=== PATIENT | female | born 1990 | race Caucasian/White ===

== ENCOUNTER 2018-03-10 14:57 | Inpatient (IN) ==
[2018-03-10] MEDS ORDERED: ONDANSETRON 4 MG/2 ML VIAL IV PRN (15:31)
[2018-03-10] MEDS ORDERED: BUTORPHANOL 2 MG/ML VIAL IV PRN (15:31)
[2018-03-10] MEDS ORDERED: DINOPROSTONE VAG GEL 10 MG SYRINGE VAG ONE (15:32)
[2018-03-10 15:51] LABS: Basophils % 0.3 % (0.0-0.8); Eosinophils % 0.3 % (0.00-10.9); Hematocrit 33.9 VOL% (35.7-47.0); Immature Granulocytes % 0.6 %; Immature Granulocytes Absolute 0.08 #; Lymphocytes # 1.1 10*3/uL (1.4-4.0); Lymphocytes % 7.6 % (21.3-54.2); Mean Corpuscular HGB Conc 35.4 GM/DL (32-36); Mean Corpuscular Hemoglobin 32 PG (27-34); Mean Corpuscular Volume 89.4 FL (87-102); Mean Platelet Volume 10.3 FL (9.6-12.0); Monocytes # 0.8 10*3/uL (0.11-0.8); Monocytes % 5.9 % (1.7-12.7); Neutrophils # 11.9 10*3/uL (1.4-7.4); Neutrophils % 85.3 % (38.7-73.9); Platelet Count 226 T/CUMM (130-400); Red Blood Count 3.79 MC/CUMM (3.8-5.5)
[2018-03-10] MEDS: LACTATED RINGERS 1,000 ML IV SCH ×2 (15:54→23:30)
[2018-03-10 16:17] LABS: Albumin 2.9 G/DL (3.4-5.0); Bilirubin,Total 0.4 MG/DL (0.2-1.0); Calcium 8.7 MG/DL (8.5-10.1); Total Protein 6.7 G/DL (6.4-8.3)
[2018-03-10 16:18] LABS: Osmolality,Calculated 275.5 MOS/KG (273-304); Potassium 3.4 MMOL/L (3.5-5.1)
[2018-03-10] MEDS ORDERED: CITRIC ACID/SODIUM CITRATE 30 ML UDCUP PO ONE (23:23)
[2018-03-10] MEDS ORDERED: FAMOTIDINE 20 MG/2 ML VIAL IV ONE (23:30)
[2018-03-10] MEDS ORDERED: ePHEDrine 50 MG/ML AMP ONE (23:33)
[2018-03-10] MEDS ORDERED: OXYTOCIN/LR 20 UNIT/1,000 ML BAG IV ONE (23:37)
[2018-03-10] MEDS ORDERED: fentaNYL 2 MCG/ROPIV 0.2% EPID 150 ML EPIDURAL SCH (23:45)
[2018-03-11] MEDS ORDERED: miSOPROStol 200 MCG TABLET ONE (00:37)
[2018-03-11] MEDS ORDERED: LIDOCAINE 1% 50 ML VIAL ONE (00:37)
[2018-03-11] MEDS ORDERED: METHYLERGONOVINE 0.2 MG/1 ML AMP ONE (00:38)
[2018-03-11 03:02] LABS: Cord Arterial Blood HCO3 18.3 MMOL/L
[2018-03-11 03:03] LABS: Cord Venous Blood HCO3 19.8 MMOL/L; Cord Venous Blood PCO2 42.9 MMHG; Cord Venous Blood PO2 24.4
[2018-03-11] MEDS ORDERED: BENZOCAINE 20%/MENTHOL 0.5% SPRAY 56 GM CAN TOP PRN (08:56)
[2018-03-11] MEDS: IBUPROFEN 800 MG TABLET PO PRN (09:00)
[2018-03-11] MEDS: DOCUSATE SODIUM 100 MG CAPSULE PO SCH ×2 (09:31→21:38)
[2018-03-12] MEDS: IBUPROFEN 800 MG TABLET PO PRN (04:21)
[2018-03-12 05:11] LABS: Basophils % 0.3 % (0.0-0.8); Eosinophils # 0.1 10*3/uL (0.0-0.87); Eosinophils % 0.8 % (0.00-10.9); Hematocrit 31.3 VOL% (35.7-47.0); Hemoglobin 10.7 GM/DL (12.0-16.0); Immature Granulocytes % 0.7 %; Lymphocytes # 1.5 10*3/uL (1.4-4.0); Lymphocytes % 10.1 % (21.3-54.2); Mean Corpuscular HGB Conc 34.2 GM/DL (32-36); Mean Corpuscular Hemoglobin 32 PG (27-34); Mean Corpuscular Volume 92.3 FL (87-102); Mean Platelet Volume 10.7 FL (9.6-12.0); Monocytes # 1.1 10*3/uL (0.11-0.8); Monocytes % 7.4 % (1.7-12.7); Neutrophils # 12.2 10*3/uL (1.4-7.4); Neutrophils % 80.7 % (38.7-73.9); Platelet Count 191 T/CUMM (130-400); Red Blood Count 3.39 MC/CUMM (3.8-5.5); Red Cell Distribution Width 13.2 % (9.3-17.3); White Blood Count 15.1 T/CUMM (4-12)
[2018-03-12] MEDS: DOCUSATE SODIUM 100 MG CAPSULE PO SCH (09:12)
[2018-03-12 13:05] VITALS: BP 103/64
== END 2018-03-12 15:15 | disposition home or self-care (01) | DRG 775 ==
LOC: N.LDOUT 14:57 → N.LD 15:04 → N.OB 03-11 05:45
PROVIDERS: ADMIT Obstetrics & Gynecology; ATTEND Obstetrics & Gynecology